=== PATIENT | male | born 1975 | race Caucasian/White ===

== ENCOUNTER 2024-05-10 20:38 | Emergency (ER) | payer MEDICAID ==
[~2024-05-10] VITALS: Ht 172.7 cm; Wt 75.0 kg
[2024-05-10] MEDS ORDERED: ASPI-10 PO (22:13)
[2024-05-10] MEDS ORDERED: DULO20CA18 PO (22:13)
[2024-05-10] MEDS: orphenadrine citrate 60mg/2ml inj. IM ONE (22:51)
[2024-05-10] MEDS: ketorolac trometh 15mg/ml vial 15 MG/ML ML IM ONE (22:52)
[2024-05-10 22:59] VITALS: BP 130/72; PULSE 64; RESP 16; TEMP 97.4; O2SAT 96
== END 2024-05-10 23:02 | disposition home or self-care (01) ==
LOC: ER 20:38
DX: M54.32 Sciatica, left side (principal); G89.29 Other chronic pain; M54.9 Dorsalgia, unspecified; Z79.899 Other long term (current) drug therapy
CPT/HCPCS: 96372; 99284; J1885; J2360

== ENCOUNTER 2024-05-23 13:03 | Emergency (ER) | payer MEDICAID ==
[~2024-05-23] VITALS: Ht 170.2 cm; Wt 116.4 kg
[~2024-05-23 13:03] MED LIST: DULO20CA18 PO
[2024-05-23 13:21] VITALS: BP 163/85; PULSE 86; RESP 16; O2SAT 97
[2024-05-23 15:23] VITALS: TEMP 98.4
== END 2024-05-23 15:26 | disposition home or self-care (01) ==
LOC: ER 13:04
DX: M54.16 Radiculopathy, lumbar region (principal); G89.29 Other chronic pain; M54.9 Dorsalgia, unspecified; Z79.899 Other long term (current) drug therapy
CPT/HCPCS: 93971; 99284